=== PATIENT | male | born 1950 ===

== ENCOUNTER → 2017-06-17 | Day surgery (SDC) | payer OTHER ==
[2017-06-16 15:21] VITALS: Ht 182.9 cm; Wt 118.2 kg
[~2017-06-17] VITALS: Ht 182.9 cm; Wt 118.2 kg
[~2017-06-17] MED LIST: 500ML BSSPLUS 0.5ML EPI1:1000 IRRIG ONE; ACETAMINOPHEN 325 MG TAB PO PRN; ATROPINE SULFATE 0.1 MG/ML 5ML SYR IV PRN; ATROPINE SULFATE 1% OP SOLN 2 ML BTL ONE; BSS FLUSH ONE; BUPIVACAINE HCL 0.75% 10 ML AMP/VIAL ONE; CEFAZOLIN SOD 1 GM VIAL ONE; DEXAMETHASONE SOD INJ 4 MG/ML VIAL ONE; EpHEDrine SULFATE 50MG/5ML SYR ONE; EpHEDrine SULFATE INJ 50 MG/ML AMP IV PRN; EpINEphrine INJ 1MG/ML AMP 1 MG/ML AMP ONE; FENTANYL CITRATE INJ 50 MCG/1 ML 2 ML VIAL IV PRN; FENTANYL CITRATE INJ 50 MCG/1 ML 2 ML VIAL ONE; FLUMAZENIL 0.1 MG/1 ML 10 ML VIAL IV PRN; FRS/40 PO; HYALURONIDASE HUMAN 150 UNIT/ML INJ ONE; HYDROmorphone INJ 2 MG/ML SYR/VIAL IV PRN; INDOCYANINE GREEN 25 MG/10 ML ONE; LABETALOL HCL IV 5 MG/ML 20ML IV PRN; LACTATED RINGER'S 1000ML 500 ML IV SCH; LIDOCAINE MPF 4% INJ INJ ONE; LISI-725 PO; MEPERIDINE HCL 25 MG/ML CARP IV PRN; METF-384 PO; METO25TA56 PO; MIDAZOLAM HCL 1 MG/ML 2ML VIAL ONE; NALOXONE HCL 0.4 MG/1 ML VIAL/CARP IV PRN; NEOMYCIN/POLYMYX/DEXAMETH OP OINT PER APP CHARGE ONE; OCUCOAT 1 ML SOLN IO ONE; ONDANSETRON INJ 2 MG/ML 2 ML VIAL IV PRN; ONDANSETRON INJ 2 MG/ML 2 ML VIAL ONE; PATIENT'S ALLERGY INFO NEEDS ENTERED SCH; PHENYLEPHRINE 100MCG/ML 5ML SYR IV PRN; PHENYLEPHRINE HCL 10% OP SOLN PER DROP CHARGE ONE; POVIDONE-IODINE OP SOLN (SURGERY CNTR CHARGING ONLY) ONE; PRLSR20 PO; PROPARACAINE 0.5% OP SOLN PER DROP CHARGE OPR SCH; PROPOFOL IV EMULSION 10 MG/ML 20 ML VIAL IV ONE; SPIR25TA PO; TIMOLOL MALEATE 0.5% OP SOLN PER DROP CHARGE ONE; TRIAMCINOLONE ACETONIDE OPHTH 40 MG/ML VIAL STERILE IO ONE; VANCOMYCIN HCL 1000MG/20ML VIAL ONE
[2017-06-17] MEDS: ATROPINE SULFATE 1% OP OINT PER APPLICATION CHARGE ONE ×2 (06:38→08:11)
[2017-06-17] MEDS: PHENYLEPHRINE HCL 2.5% OP SOLN PER DROP CHARGE OPR SCH ×4 (06:41→06:46)
[2017-06-17] MEDS: TROPICAMIDE 1% OP SOLN PER DROP CHARGE OPR SCH ×4 (06:42→06:46)
--- NOTE | 2017-06-17 06:57 | History & Physical Bridge - [place] ---
H&P Re-Evaluation Bridge Note: I have examined the patient, reviewed the History & Physical and in the interval since the performance of the History & Physical I have noted the following changes of clinical significance: No changes noted
--- NOTE | 2017-06-17 08:13 | Discharge Instructions-SurgCtr ---
Discharge Instructions Date of Service Jun 17, 2017. Visit Reason for Visit: Right Eye Retinal Detachment Discharge Discharge Diagnosis / Problem: same Discharge Goals Goal(s): Improve function Activity Recommendations Activity Limitations: per Instructions/Follow-up section Anesthesia . Post Anesthesia Instructions: If you have had General Anesthesia or IV Sedation: * Do not drive today. * Resume driving when surgeon permits. * Do not make important decisions or sign legal documents today. * Call surgeon for: 1. Temperature elevations greater than 101 degrees F. 2. Uncontrollable pain. 3. Excessive bleeding. 4. Persistent nausea and vomiting. 5. Medication intolerance (nausea, vomiting or rash). * For nausea and vomiting use only clear liquids such as: tea, soda, bouillon until nausea subsides, then gradually increase diet as tolerated. * If you have any concerns or questions, call your surgeon's office. If physician is unavailable and it is an emergency, call 911 or go to the nearest emergency room. . Instructions / Follow-Up Instructions / Follow-Up * May take Tylenol if needed for discomfort. * Do NOT lay flat on back and position head as follows: Face forward, chin down , face down. Sleep left side down. * Do NOT remove green bracelet until instructed to do so by your surgeon and follow these precautions: * No air travel * No travel above 2500 feet * No nitrous oxide (N2O). * Do NOT remove eye shield. * NO straining, heavy lifting (>15 pounds) or bending below waist. * Avoid getting water or soap directly into operative eye. * Do NOT rub eye. If you experience increasing eye pain not relieved by medication, please contact us immediately at [phone]. If you are unable to reach someone at the above number, call [phone] and ask to speak with the EYE DOCTOR VOLTAGE REGULATOR ASSEMBLER. Inform them that you are a Dr. Hsu patient who had recent surgery. Diet Recommendations Home Diet: resume previous diet Procedures Procedures Performed: Right Eye 23 Gauge Vitrectomy, Laser, Instillation of SF6 gas Pending Studies Studies pending at discharge: no Medical Emergencies . Who to Call and When: Medical Emergencies: If at any time you feel your situation is an emergency, please call 911 immediately. . Non-Emergent Contact Non-Emergency issues call your: Tours Captain . . "Provider Documentation" section prepared by Claude Hsu. .
--- NOTE | 2017-06-17 08:17 | [facility] Operative Report ---
Operative Report Date of Service Jun 17, 2017. Operative Report PREOPERATIVE DIAGNOSIS: Retinal detachment, macula-off, right eye. 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 PROCEDURE: 1. Pars plana vitrectomy, 23 gauge. 2. Fluid-air exchange. 3. Endolaser. 4 Air-gas exchange with SF6 20%. All to the right eye. CPT CODE: 65039 SURGEON: Claude Hsu D.O. COMPLICATIONS: None. ESTIMATED BLOOD LOSS: None. SPECIMENS: None. ANESTHESIA: Retrobulbar block and MAC. INDICATIONS FOR PROCEDURE: Surgery is indicated to decrease risk of vision loss and potentially improve vision. CONSENT: The risks, benefits and alternatives were discussed with the patient including but not limited to decreased visual acuity, failure to achieve desired results, loss of the eye, infection, pain, glaucoma, lens changes, retinal tears, retinal detachment, the need for more procedures, drooping of the eyelid, blindness, and double vision. The patient is aware of risks and consents to the surgery. Consent is signed and on the chart. OPERATION AND FINDINGS: The patient was brought to the operating room where the patient was identified by name, date, and medical record number. The surgical site was confirmed with the informed written consent. The patient was sedated by the anesthesiology team after which a 50:50 mixture of 4% lidocaine and 0.75% bupivacaine with hyaluronidase was administered in a standard retrobulbar fashion. A total of 4 ml was administered without difficulty. The patient was then prepped and draped in the usual sterile manner for retinal surgery. A wire lid speculum was placed and an Bill 23-gauge trocar cannula system was employed. The inferior temporal trocar cannula was first placed in an angled fashion 3.75mm posterior to the surgical limbus and the infusion cannula was inserted into this cannula after which the intravitreal position was verified prior to turning the infusion on. Two more trocar cannulas were then inserted in an angled fashion, one in the superior temporal, and one in the superior nasal quadrant both 3.75mm posterior to the surgical limbus. A light pipe and vitrector were then introduced into the eye and the BIOM wide angle viewing system was brought into place. Posterior inspection revealed a retinal detachment from 8:30 to 12:30 o'clock with the inciting retinal breaks at 10:30 to 11:30 o'clock. Standard core vitrectomy was performed and the vitreous was insured to be totally detached from the posterior pole with the aid of the vitrector. The vitreous base was noted to be more posterior and thicker than normal and this was shaved for 360 degrees. At this point scleral depression was performed for 360 degrees and no other retinal tears were noted. Fluid air exchange was performed and the subretinal fluid was drained through a small retinotomy site that was fashioned superior to the arcades. Endolaser was then used to place laser around the inciting retinal break and the drainage retinotomy as well as along the posterior vitreous base. Next, an air gas exchange was performed with SF620% for a complete fill of the eye. The trocar cannulas were then removed and found to be air tight. The intraocular pressure was found to be within normal limits by palpation and subconjunctival injections of Kefzol and dexamethasone were administered inferiorly and superiorly. The wire lid speculum was removed. Maxitrol, atropine and timolol were applied to the surface of the eye. A light patch and shield were taped over the surface of the eye and the patient left the Operating Room in stable condition having tolerated the procedure well. DISPOSITION: A gas bracelet was placed on the patient's wrist and gas precautions reviewed as well as the positioning instructions. The patient has an appointment the following morning in the Ophthalmology Clinic. The patient is to call immediately if there are any problems overnight. I attest to the content of the Intraoperative Record and any orders documented therein. Any exceptions are noted below.
--- NOTE | 2017-06-17 08:44 | Anesthesia Progress Nt - [facility] ---
Anesthesia Post Op Note Date & Time Jun 17, 2017 at 08:44 Vital Signs Pain Intensity: 0 Vital Signs Past 12 Hours Date Time Temp Pulse Resp B/P (MAP) Pulse Ox O2 Delivery O2 Flow Rate FiO2 06/17/17 08:17 36.3 90 20 140/90 98 Mask 4 06/17/17 06:29 36.9 79 20 127/82 (97) 94 Room Air Notes Mental Status: alert / awake / arousable, participated in evaluation Pt Amnestic to Procedure: Yes Nausea / Vomiting: adequately controlled Pain: adequately controlled Airway Patency, RR, SpO2: stable & adequate BP & HR: stable & adequate Hydration State: stable & adequate Anesthetic Complications: no major complications apparent
[2017-06-17 08:56] VITALS: TEMP 36.4
[2017-06-17 09:19] VITALS: BP 112/74; PULSE 70; O2SAT 92
== END | disposition home or self-care (01) ==
LOC: X.SURG 06:06
PROVIDERS: ATTEND Ophthalmology
DX: H33.021 Retinal detachment with multiple breaks, right eye (principal); Z79.899 Other long term (current) drug therapy; Z79.84 Long term (current) use of oral hypoglycemic drugs; Z87.891 Personal history of nicotine dependence